=== PATIENT | female | born 1985 | race Caucasian/White ===

== ENCOUNTER 2023-05-10 04:02 | Emergency (ER) | payer OTHER ==
[2023-05-10 04:48] LABS: BASO # 0.04 K/mm3 (0.02-0.10); EOS # 0.25 K/mm3 (0.04-0.40); EOS % 3.5 % (1.0-5.0); HEMATOCRIT 38.3 % (37.0-47.0); HEMOGLOBIN 12.5 g/dL (12.5-16.0); MEAN CELL VOLUME 92 fl (78-100); MEAN CORPUSCULAR HEMOGLOBIN 30 pg (27-31); MEAN CORPUSCULAR HGB CONC 33 g/dL (33-37); MEAN PLATELET VOLUME 8.8 fl (7.4-10.4); MONO # 0.41 K/mm3 (0.20-0.80); NEU # 4.12 K/mm3 (1.40-6.50); PLATELET COUNT 289 K/mm3 (130-400); RED BLOOD COUNT 4.18 M/mm3 (4.10-5.30); RED CELL DISTRIBUTION WIDTH 12.2 % (11.5-14.5); WHITE BLOOD COUNT 7.2 K/mm3 (4.8-10.8)
[2023-05-10 04:53] LABS: ALBUMIN 4.1 g/dL (3.5-5.0)
[2023-05-10 04:54] LABS: SODIUM 140 mmol/L (136-145)
[2023-05-10 04:55] LABS: CALCIUM 9.8 mg/dL (8.3-10.5)
[2023-05-10 04:56] LABS: GLUCOSE 97 mg/dL (65-105); TOTAL PROTEIN 6.7 g/dL (6.4-8.3)
[2023-05-10 04:57] LABS: CARBON DIOXIDE 23 mmol/L (22-29)
[2023-05-10 04:58] LABS: TOTAL BILIRUBIN 0.6 mg/dL (0.2-1.2)
[2023-05-10 05:01] LABS: AST-SGOT 20 U/L (5-34)
[2023-05-10 05:03] LABS: ALT/SGPT 23 U/L (0-55)
[2023-05-10] MEDS ORDERED: WELLBUTRIN XL300 M1 PO (05:08)
[2023-05-10] MEDS ORDERED: LOSARTAN POTASS25 MG PO (05:10)
[2023-05-10 05:15] LABS: TROPONIN-I < 0.030 ng/mL (<0.030)
[2023-05-10 05:19] LABS: D-DIMER 0.16 mg/L FEU (0.15-0.50)
[2023-05-10 05:56] VITALS: BP 113/89
== END 2023-05-10 05:40 | disposition home or self-care (01) ==
LOC: ED 04:02
PROVIDERS: Physician Assistant
DX: R07.9 Chest pain, unspecified (principal); R12 Heartburn; I10 Essential (primary) hypertension; Z82.49 Family history of ischemic heart disease and other diseases of the circulatory system; Z79.899 Other long term (current) drug therapy